=== PATIENT | female | born 1985 | race Caucasian/White ===

== ENCOUNTER 2017-10-12 09:17 | Inpatient (IN) | payer MEDICAID, OTHER ==
[2017-10-12] VITALS (21 sets, daily range): BP systolic 107–159; BP diastolic 55–125; PULSE 72–95; RESP 12–20; TEMP 97.7–98.8
[~2017-10-12] VITALS: Ht 165.1 cm; Wt 68.0 kg
[~2017-10-12 09:17] MED LIST: IBUP600 PO; OXYC1SOL5 PO; PRENCAP6 PO
[2017-10-12] MEDS ORDERED: LACTATED RINGER'S 1000 ML INJ 1,000 ML IV SCH (10:05)
[2017-10-12] MEDS ORDERED: LACTATED RINGER'S 1000 ML INJ 1,000 ML IV PRN (10:05)
--- NOTE | 2017-10-12 10:10 | HHI.HP ---
HPI Chief Complaint contractions Date Seen: Oct 12, 2017 Time Seen: 10:00 Travel History International Travel<30 Days: No Contact w/Intl Traveler<30Days: No Known Affected Area: No History of Present Illness HPI Patient is 31-year-old white female at [address] Topete for care. The patient presents complaining of regular painful contractions since early this morning. Denies ruptured membranes or bleeding. heart tracing is reactive, and contractions are seen every 2 minutes and they are palpable and painful Weeks Gestation: 39 Para: 1 : 2 History Obstetric History Obstetric History One vaginal delivery Social History Alcohol Use: No Tobacco Use: No Substance Abuse: No Allergies-Medications (Allergen,Severity, Reaction): Coded Allergies: No Known Allergies (Verified , 03/08/15) Home Meds Reported Medications Mv & Min W/Fe Fumarat ( 1) 30 Mg-975 Mcg-200 Mg Cap, 1 CAP PO DAILY, CAP 03/08/15 Discontinued Scripts Oxycodone W/ Acetaminophen (Oxycodone/Acetaminophen 5-325 mg/5Ml) 1 Tab Tab, 1 TAB PO Q4H Y for PAIN SCALE 1 TO 4, #12 TAB Prov:Erika Topete MD 03/09/15 Review of Systems General / Constitutional: No: Fever, Weight Gain, Chills, Other Eyes: No: Diploplia, Blurred Vision, Visual changes, Pain, Photophobia HENT: No: Headaches, Vertigo, Lightheadedness Cardiovascular: No: Irregular Rhythm, Chest Pain or Discomfort, Palpitations, Tachycardia, Syncope, Varicosities, Edema, Cyanosis Respiratory: No: Cough, Short of Breath, Other Gastrointestinal: Abdominal Pain, No: Nausea, Vomiting, Diarrhea Genitourinary: No: Decreased Urinary Output, Oliguria Musculoskeletal: No: Limited ROM, Weakness, Cramping, Edema, Pain Skin: No Rash, No Itching, No Dryness, No Lumps, No Change in Pigmentation, No Change in Nails, No Alopecia, No Lesions Neurologic: No: Weakness, Dizziness, Syncope, Focal Abnormalities, Coordination Problem, Headache, Slurred Speech, Seizures Psychiatric: No: Depression, Suicidal Ideations, Homicidal Ideation Endocrine: No: Heat Intolerance, Cold Intolerance, Polydipsia, Polyuria, Other Physical Exam Narrative GENERAL: Well-nourished, well-developed patient. SKIN: Warm and dry. HEAD: Normocephalic and atraumatic. EYES: No scleral icterus. No injection or drainage. ENT: No nasal drainage noted. Mucous membranes pink. Airway patent. NECK: Supple, trachea midline. No JVD. CARDIOVASCULAR: Regular rate and rhythm without murmurs, gallops, or rubs. RESPIRATORY: Breath sounds equal bilaterally. No accessory muscle use. BREASTS: Bilateral exam showed no masses , no retractions, no nipple discharge. ABDOMEN/GI: Abdomen soft, non-tender, bowel sounds present, no rebound, no guarding Gravid to [39-] weeks size Fundal Height: [39-] GENITOURINARY: External Genitalia: intact and normal in appearance BUS glands: [-] Cervix: [-] Dilatation: [5-] Effacement: [-90] Station: [0-] Presentation: [vtx-] Membranes: [intact ] Uterine Contractions: [q 2 min-] FHT's: Category: [1-] Baseline: [-133] Reactive: [-yes] Variability: [-mod] Decels: [-occ variable] EXTREMITIES: No cyanosis or edema. BACK: Nontender without obvious deformity. No CVA tenderness. NEUROLOGICAL: Awake and alert. Motor and sensory grossly within normal limits. Five out of 5 muscle strength in all muscle groups. Normal speech. Caprini VTE Risk Assessment Caprini VTE Risk Assessment: No/Low Risk (score <= 1) Caprini Risk Assessment Model Point Value = 1 Point Value = 2 Point Value = 3 Point Value = 5 Age 41-60 Minor surgery BMI > 25 kg/m2 Swollen legs Varicose veins or History of unexplained or recurrent spontaneous Oral contraceptives or hormone replacement Sepsis (< 1 month) Serious lung disease, including pneumonia (< 1 month) Abnormal pulmonary function Acute myocardial infarction Congestive heart failure (< 1 month) History of inflammatory bowel disease Medical patient at bed rest Age 61-74 Arthroscopic surgery Major open surgery (> 45 min) Laparoscopic surgery (> 45 min) Malignancy Confined to bed (> 72 hours) Immobilizing plaster cast Central venous access Age >= 75 History of VTE Family history of VTE Factor V Leiden Prothrombin [id number] Lupus anticoagulant Anticardiolipin antibodies Elevated serum homocysteine Heparin-induced thrombocytopenia Other congenital or acquired thrombophilia Stroke (< 1 month) Elective arthroplasty Hip, pelvis, or leg fracture Acute spinal cord injury (< 1 month) Prophylaxis Regimen Total Risk Factor Score Risk Level Prophylaxis Regimen 0-1 Low Early ambulation 2 Moderate Order ONE of the following: *Sequential Compression Device (SCD) *Heparin 5000 units SQ BID 3-4 Higher Order ONE of the following medications: *Heparin 5000 units SQ TID *Enoxaparin/Lovenox 40 mg SQ daily (WT < 150 kg, CrCl > 30 mL/min) *Enoxaparin/Lovenox 30 mg SQ daily (WT < 150 kg, CrCl > 10-29 mL/min) *Enoxaparin/Lovenox 30 mg SQ BID (WT < 150 kg, CrCl > 30 mL/min) AND/OR *Sequential Compression Device (SCD) 5 or more Highest Order ONE of the following medications: *Heparin 5000 units SQ TID (Preferred with Epidurals) *Enoxaparin/Lovenox 40 mg SQ daily (WT < 150 kg, CrCl > 30 mL/min) *Enoxaparin/Lovenox 30 mg SQ daily (WT < 150 kg, CrCl > 10-29 mL/min) *Enoxaparin/Lovenox 30 mg SQ BID (WT < 150 kg, CrCl > 30 mL/min) AND *Sequential Compression Device (SCD) Data Data Orders Orders Admit To Inpatient (10/12/17 ) Vital Signs (Adult) .Per protocol (10/12/17 10:05) Heart (10/12/17 10:05) Amnioinfusion (10/12/17 10:05) Urinary Catheter Management .ONCE (10/12/17 10:05) Diet Npo (10/12/17 Lunch) Lactated Ringer's 1000 Ml Inj (Lr 1000 M (10/12/17 10:05) Lactated Ringer's 1000 Ml Inj (Lr 1000 M (10/12/17 10:05) Sodium Chlorid 0.9% 500 Ml Inj (Ns 500 M (10/12/17 10:15) Sodium Chlor 0.9% 1000 Ml Inj (Ns 1000 M (10/12/17 10:25) Lidocaine 1% Inj (50 Ml) (Xylocaine 1% I (10/12/17 10:15) Citric Acid-Sodium Citrate Liq (Bicitra (10/12/17 10:15) Fentanyl Inj (Fentanyl Inj) (10/12/17 10:15) Fentanyl Inj (Fentanyl Inj) (10/12/17 10:15) Complete Blood Count With Diff (10/12/17 10:05) Hold Clot (10/12/17 10:05) Abo/Rh Blood Type (10/12/17 10:05) Urinalysis - C+S If Indicated (10/12/17 10:05) Drug Screen, Random Urine (10/12/17 10:05) Resp Oxygen Non Rebreathe Mask (10/12/17 ) ^ Epidural / Intrathecal Infus (10/12/17 10:05) Oxytocin 30 Units-500ml Premix (Pitocin (10/12/17 10:15) Lidocaine 1% Inj (50 Ml) (Xylocaine 1% I (10/12/17 10:15) Light Mineral Oil (Muri-Lube Oil) (10/12/17 10:15) Group B Strep: Negative Assessment/Plan Assessment and Plan Patient is 31-year-old white female at 39 weeks presents in active labor. She is dilated 5 cm/90/0 station, contractions are regular, membranes intact , and she sees Dr. Topete for care Plan to admit for labor management and anticipate vaginal delivery Ra Mckeon II, MD Oct 12, 2017 10:10
[2017-10-12] MEDS ORDERED: LIDOCAINE HCL 1% 50 ML VIAL INFIL PRN (10:15)
[2017-10-12] MEDS ORDERED: LIDOCAINE HCL 1% 50 ML VIAL I-DERMAL PRN (10:15)
[2017-10-12] MEDS ORDERED: CITRIC ACID-SODIUM CITRATE LIQ 30 ML UDC PO SCH (10:15)
[2017-10-12] MEDS ORDERED: MINERAL OIL 10 ML VIAL TOPICAL PRN (10:15)
[2017-10-12] MEDS ORDERED: OXYTOCIN 30 UNITS-500ML PREMIX 500 ML IV ONE (10:15)
[2017-10-12] MEDS ORDERED: SODIUM CHLORID 0.9% 500 ML INJ 500 ML IV PRN (10:15)
[2017-10-12] MEDS ORDERED: SODIUM CHLOR 0.9% 1000 ML INJ 1,000 ML IV PRN (10:25)
[2017-10-12 10:59] LABS: AUTOMATED NEUTROPHIL # 15.8 TH/MM3 (1.8-7.7); BASOPHIL % 0.2 % (0.0-2.0); EOSINOPHIL % 0.2 % (0.0-4.0); HEMATOCRIT 38.9 % (35.0-46.0); HEMO FLAGS DIFF FINAL; LYMPH % 7.8 % (9.0-44.0); LYMPHOCYTE # 1.4 TH/MM3 (1.0-4.8); MEAN CELL VOLUME 94.4 FL (80.0-100.0); MEAN CORPUSCULAR HGB CONC 34.9 % (32.0-36.0); MONO % 3.5 % (0.0-8.0); NEUT % 88.3 % (16.0-70.0); PLATELET COUNT 201 TH/MM3 (150-450); RED BLOOD COUNT 4.13 MIL/MM3 (4.00-5.30); RED CELL DISTRIBUTION WIDTH 12.6 % (11.6-17.2); WHITE BLOOD COUNT 17.9 TH/MM3 (4.0-11.0)
[2017-10-12 11:11] LABS: BACTERIA, URINE FEW /hpf; BLOOD, URINE MOD (NEG); GLUCOSE,URINE NEG (NEG); KETONE, URINE NEG (NEG); MUCUS URINE FEW /lpf (OCC); NITRITE,URINE NEG (NEG); PH, URINE 5.5 (5.0-8.5); SQUAMOUS EPITHELIAL CELL URINE 18 /hpf (0-5); TRANSITIONAL EPI CELLS, URINE <1 /hpf; URINE COLOR YELLOW (YELLW/STRAW)
[2017-10-12 11:15] LABS: COMMENT (UR) CULTURE INDICATED; CULTURE IF INDICATED CULTURE INDICATED
--- NOTE | 2017-10-12 13:11 | PD.OB.DELI ---
Weeks gestation: 39 Gest age assessed date: Oct 12, 2017 Gest age assessed time: 09:36 Pt started active labor?: Yes Active labor start date: Oct 12, 2017 Medical induction of labor?: No Artificial rupture of membrane: Yes Anesthesia: None Episiotomy: None Vaginal Delivery: Normal Presentation: Occiput anterior Nuchal Cord: None Delayed cord clamping (45 sec): Yes (60 seconds) Infant: Male Delivery date: Oct 12, 2017 Delivery time: 12:48 One Minute : 9 Five Minute : 9 Weight: delayed for skin to skin Placenta: Spontaneous delivery, Intact, 3 vessel cord Laceration: 1 deg (right labial/periurethral and first degree perineal laceration) Repair: Chromic interrupted (perineal laceration repaired with one figure of eight suture), Chromic running (right labial laceration repaired with chromic running suture) Estimated blood loss: 250cc Additional Information Baby Kalani Sol MD, R3 Oct 12, 2017 13:11
[2017-10-12] MEDS ORDERED: BENZOCAINE 20% TOPICAL SPRAY 60 ML CAN TOPICAL PRN (13:15)
[2017-10-12] MEDS ORDERED: SODIUM CHLORIDE 0.9% FLUSH 10 ML FLUSH IV FLUSH PRN (13:15)
[2017-10-12] MEDS ORDERED: ONDANSETRON ODT 4 MG TAB PO PRN (13:15)
[2017-10-12] MEDS ORDERED: ALUMINUM/MAGNESIUM/SIMETH 30 ML CUP PO PRN (13:15)
[2017-10-12] MEDS ORDERED: DOCUSATE SODIUM 50 MG/SENNA 8.6 MG TAB PO PRN (13:15)
[2017-10-12] MEDS ORDERED: ACETAMINOPHEN 325 MG TAB PO PRN (13:15)
[2017-10-12] MEDS ORDERED: WITCH HAZEL 50%/GLYCERIN 12.5% 40 PAD JAR TOPICAL PRN (13:15)
[2017-10-12] MEDS ORDERED: ZOLPIDEM TARTRATE 5 MG TAB PO PRN (13:15)
[2017-10-12] MEDS ORDERED: KETOROLAC TROMETHAMINE 30 MG/ML (IVP) VIAL IV PUSH ONE (13:45)
[2017-10-12] MEDS ORDERED: OXYTOCIN 30 UNITS-500ML PREMIX 500 ML IV SCH (14:00)
[2017-10-12] MEDS: IBUPROFEN 800 MG TAB PO PRN ×2 (15:05→23:58)
[2017-10-12] MEDS ORDERED: MEASLES, MUMPS, RUBELLA VACCINE 0.5 ML VIAL SQ ONE (16:00)
[2017-10-12] MEDS ORDERED: DIPHTH/TETANUS/ACEL PERTUSSIS (BOOSTER) 0.5 ML VIAL/PFS IM ONE (16:00)
[2017-10-12] MEDS ORDERED: SODIUM CHLORIDE 0.9% FLUSH 10 ML FLUSH IV FLUSH SCH (21:00)
[2017-10-13 08:00] VITALS: BP 113/63; PULSE 66; RESP 18; TEMP 98.1
[2017-10-13] MEDS: oxyCODONE/ACETAMINOPHEN 5 MG/325 MG TAB PO PRN ×3 (08:58→18:29)
[2017-10-13] MEDS: IBUPROFEN 800 MG TAB PO PRN ×2 (08:58→18:29)
--- NOTE | 2017-10-13 10:46 | HHI.OB ---
Subjective Post Day: 1 Objective Vitals/I&O Vital Signs Date Time Temp Pulse Resp B/P (MAP) Pulse Ox O2 Delivery O2 Flow Rate FiO2 10/13/17 08:00 98.1 66 18 113/63 (80) 10/12/17 19:36 87 117/72 (87) 10/12/17 19:36 98.2 16 10/12/17 15:45 98.1 78 12 107/64 (78) 10/12/17 15:30 98.1 78 12 107/64 (78) 10/12/17 14:45 86 129/74 (92) 10/12/17 14:45 18 10/12/17 14:30 76 111/72 (85) 10/12/17 14:16 74 114/55 (74) 10/12/17 14:15 18 10/12/17 14:00 89 120/67 (84) 10/12/17 13:46 89 115/75 (88) 10/12/17 13:35 97.7 20 10/12/17 13:30 82 121/71 (88) 10/12/17 13:19 18 10/12/17 13:15 18 10/12/17 13:15 88 123/90 (101) 10/12/17 13:10 95 131/75 (93) 10/12/17 13:09 76 159/125 (136) 10/12/17 12:19 20 10/12/17 12:02 18 10/12/17 11:48 94 135/80 (98) 10/12/17 11:47 98.8 20 Objective Remarks GENERAL: Well-nourished, well-developed patient. CARDIOVASCULAR: Regular rate and rhythm without murmurs, gallops, or rubs. RESPIRATORY: Breath sounds equal bilaterally. No accessory muscle use. ABDOMEN/GI: Abdomen soft, non-tender. Fundus: Firm, non-tender at umbilicus. GENITOURINARY: Light to moderate bleeding. EXTREMITIES: No cyanosis or edema, non-tender, without signs of DVT. Medications and IVs Current Medications Medications (Trade) Dose Ordered Sig/Peyman Route Start Time Stop Time Status Last Admin (Xylocaine 1% Inj (50 ml)) 0.1 ml UNSCH X1 PRN I-DERMAL 10/12/17 10:15 10/15/17 10:14 (Bicitra Liq) 30 ml VIDEO MACH[employer]ES MECH[employer]IC PO 10/12/17 10:15 10/16/17 10:14 (Xylocaine 1% Inj (50 ml)) 10 ml UNSCH X1 PRN INFIL 10/12/17 10:15 10/14/17 10:14 (NS Flush) 2 ml BID IV FLUSH 10/12/17 21:00 (NS Flush) 2 ml UNSCH PRN IV FLUSH 10/12/17 13:15 (Tylenol) 650 mg Q4H PRN PO 10/12/17 13:15 (Motrin) 800 mg Q8H PRN PO 10/12/17 13:15 10/13/17 08:58 (Percocet 5-325 Mg) 1 tab Q4H PRN PO 10/12/17 13:15 (Percocet 5-325 Mg) 2 tab Q4H PRN PO 10/12/17 13:15 10/13/17 08:58 (Americaine 20% Top Spr) 1 spray Q4H PRN TOPICAL 10/12/17 13:15 10/12/17 16:28 (Tucks Pads) 1 applic QID PRN TOPICAL 10/12/17 13:15 10/12/17 16:28 (Elise-Colace) 2 tab Q12H PRN PO 10/12/17 13:15 (Ambien) 5 mg HS PRN PO 10/12/17 13:15 (Mag-Al Plus Susp Liq) 15 ml Q8H PRN PO 10/12/17 13:15 (Zofran Odt) 4 mg Q6H PRN PO 10/12/17 13:15 Assessment/Plan Problem List: (1) Normal vaginal delivery ICD Codes: O80 - Encounter for full-term uncomplicated delivery Assessment and Plan pt doing well pain well managed with oral pain medication and bonding with routine Discharge Planning consider dc home tomorrow Kayleen Hernandez Oct 13, 2017 10:46
[2017-10-14] MEDS: oxyCODONE/ACETAMINOPHEN 5 MG/325 MG TAB PO PRN ×3 (01:20→10:35)
[2017-10-14 04:30] VITALS: RESP 16
[2017-10-14] MEDS ORDERED: IBUP1TAB7 PO (08:28)
[2017-10-14] MEDS ORDERED: OXYC1TAB63 PO (08:28)
--- NOTE | 2017-10-14 10:19 | HHI.OB ---
Subjective Post Day: 2 Objective Vitals/I&O Vital Signs Date Time Temp Pulse Resp B/P (MAP) Pulse Ox O2 Delivery O2 Flow Rate FiO2 10/14/17 04:30 16 Objective Remarks GENERAL: Well-nourished, well-developed patient. CARDIOVASCULAR: Regular rate and rhythm without murmurs, gallops, or rubs. RESPIRATORY: Breath sounds equal bilaterally. No accessory muscle use. ABDOMEN/GI: Abdomen soft, non-tender. Fundus: Firm, non-tender at umbilicus. GENITOURINARY: Light to moderate bleeding. EXTREMITIES: No cyanosis or edema, non-tender, without signs of DVT. Medications and IVs Current Medications Medications (Trade) Dose Ordered Sig/Peyman Route Start Time Stop Time Status Last Admin (Xylocaine 1% Inj (50 ml)) 0.1 ml UNSCH X1 PRN I-DERMAL 10/12/17 10:15 10/15/17 10:14 (Bicitra Liq) 30 ml UNINDENTURED APPRENTICE PO 10/12/17 10:15 10/16/17 10:14 (NS Flush) 2 ml BID IV FLUSH 10/12/17 21:00 (NS Flush) 2 ml UNSCH PRN IV FLUSH 10/12/17 13:15 (Tylenol) 650 mg Q4H PRN PO 10/12/17 13:15 (Motrin) 800 mg Q8H PRN PO 10/12/17 13:15 10/13/17 18:29 (Percocet 5-325 Mg) 1 tab Q4H PRN PO 10/12/17 13:15 10/13/17 18:29 (Percocet 5-325 Mg) 2 tab Q4H PRN PO 10/12/17 13:15 10/14/17 06:48 (Americaine 20% Top Spr) 1 spray Q4H PRN TOPICAL 10/12/17 13:15 10/12/17 16:28 (Tucks Pads) 1 applic QID PRN TOPICAL 10/12/17 13:15 10/12/17 16:28 (Elise-Colace) 2 tab Q12H PRN PO 10/12/17 13:15 (Ambien) 5 mg HS PRN PO 10/12/17 13:15 (Mag-Al Plus Susp Liq) 15 ml Q8H PRN PO 10/12/17 13:15 (Zofran Odt) 4 mg Q6H PRN PO 10/12/17 13:15 Assessment/Plan Problem List: (1) Normal vaginal delivery ICD Codes: O80 - Encounter for full-term uncomplicated delivery Assessment and Plan pt doing well, ready to go home pain well managed with oral pain medication and bonding with routine Discharge Planning dc home today Kayleen Hernandez Oct 14, 2017 10:19
[2017-10-14] MEDS: IBUPROFEN 800 MG TAB PO PRN (10:35)
--- NOTE | 2017-10-14 12:02 | HHI.DS ---
Admission Date Oct 12, 2017 at 10:09 Discharge Date: Oct 14, 2017 Admitting Diagnosis term labor Diagnosis: (1) Normal vaginal delivery ICD Codes: O80 - Encounter for full-term uncomplicated delivery Delivery Date: Oct 12, 2017 Vaginal Delivery: Normal : Male Brief History Patient is 31-year-old white female at [address] Topete for care. The patient presents complaining of regular painful contractions since early this morning. Denies ruptured membranes or bleeding. heart tracing is reactive, and contractions are seen every 2 minutes and they are palpable and painful Hospital Course term labor Pt Condition on Discharge: Good Discharge Disposition: Discharge Home Discharge Instructions Diet Instructions: As Tolerated, No Restrictions Additional Diet Instructions: Drink at least 8 - 16 oz bottles of water a day Activities You Can Perform: Shower Only-No Bath, Sitz Bath Activities to Avoid: Lifting/Bending, Sexual Activity Additional Activity Instruc.: No driving until off pain medications Do not lift anything heavier than your baby in an infant carrier Follow up Referrals: EDITOR DICTIONARY - 2 Weeks @ [facility] [place] New Medications: Ibuprofen (Ibuprofen) 800 Mg Tab 800 MG PO Q8H PRN for CRAMPING, #30 TAB Oxycodone HCl/Acetaminophen (Oxycodone-Acetaminophen 5-325) 5 Mg-325 Mg Tablet 1 TAB PO Q4H PRN for moderate pain, #30 TAB Continued Medications: Mv & Min W/Fe Fumarat ( 1) 30 Mg-975 Mcg-200 Mg Cap 1 CAP PO DAILY, CAP Kayleen Hernandez Oct 14, 2017 12:02
== END 2017-10-14 16:45 | disposition home or self-care (01) | DRG 775 ==
LOC: HOBED 09:17 → H2EB 10:09 → H1EA 15:14
PROVIDERS: ADMIT Obstetrics & Gynecology; ATTEND Obstetrics & Gynecology
PROC: 10E0XZZ Delivery of Products of Conception, External Approach (ICD-10-PCS; principal; 2017-10-12)
PROC: 10907ZC Drainage of Amniotic Fluid, Therapeutic from Products of Conception, Via Natural or Artificial Opening (ICD-10-PCS; 2017-10-12)
PROC: 0HQ9XZZ Repair Perineum Skin, External Approach (ICD-10-PCS; 2017-10-12)
DX: O70.0 First degree perineal laceration during delivery (principal); Z37.0 Single live birth; Z3A.39 39 weeks gestation of pregnancy
CPT/HCPCS: 80307; 81001; 85025; 87086; 90715; J1885; J2590; J3010; J7120